=== PATIENT | female | born 1990 | race Caucasian/White ===

== ENCOUNTER 2018-03-13 10:51 | Inpatient (IN) | payer OTHER ==
[~2018-03-13] VITALS: Ht 157.5 cm; Wt 97.5 kg
[~2018-03-13 10:51] MED LIST: FLEXERIL10 MG PO
[2018-03-13] MEDS ORDERED: PRENATAL TABLE1 EAC2 PO (11:51)
[2018-03-13 12:41] LABS: ABSOLUTE BASOPHIL COUNT 0.1 /CUMM (0.0-0.2); ABSOLUTE EOSINOPHIL COUNT 0.2 /CUMM (0.0-0.7); ABSOLUTE GRANULOCYTE CT 10.3 /CUMM (1.4-6.5); ABSOLUTE LYMPH COUNT 1.8 /CUMM (1.2-3.4); ABSOLUTE MONOCYTE COUNT 0.5 /CUMM (0.10-0.60); BASOPHIL % 0.5 % (0.0-2.0); EOSINOPHIL % 1.4 % (0-5); GRANULOCYTE % 80.3 % (42.2-75.2); HEMATOCRIT 36.9 % (37-47); MEAN CORPUSCULAR HGB 30.7 PG (27.0-31.0); MEAN CORPUSCULAR HGB CONC 33.4 G/DL (33.0-37.0); MEAN CORPUSCULAR VOLUME 91.8 FL (81.0-99.0); MEAN PLATELET VOLUME 9.2 FL (7.4-10.4); PLATELET COUNT 251 /CUMM (130-400); RBC DISTRIBUTION WIDTH 14.5 % (11.5-14.5); RED BLOOD CELL CT 4.02 /CUMM (4.20-5.40); WHITE BLOOD CELL COUNT 12.8 /CUMM (4.8-10.8)
--- NOTE | 2018-03-13 13:47 | History & Physical ---
General Information and HPI MD Statement: I have seen and personally examined BREN SRIVASTAVA and documented this H&P. The patient is a 27 year old female at [40] weeks and [5] days gestation who presented with a chief complaint of [IOL]. Source of Information: patient Exam Limitations: no limitations History of Present Illness: 27yo, 40 5/7wks, here for IOL due to postdate. she has no complaints, c/o occasional ctxs, denies VB or LOF, reports GFM. care started at 29 wks, uncomplicated thus far. GBS negative Allergies/Medications Allergies: Coded Allergies: sumatriptan (ANAPHYLAXIS 03/13/18) Home Med list Vit No.130/Iron/FA ( Tablet) 27 MG IRON-800 MCG TABLET 1 TAB PO DAILY (Reported) Compliance With Home Meds: GOOD Past History carbon grinder History : 1 Para: 0 Last Menstrual Period: unknown Estimated Delivery Date: 03/08/2018 Past carbon grinder History: none Medical History Neurological: migraine EENT: NONE Cardiovascular: NONE Respiratory: NONE Gastrointestinal: GERD Hepatic: NONE Renal: NONE Musculoskeletal: NONE Psychiatric: NONE Endocrine: NONE Blood Disorders: NONE Cancer(s): NONE DIRECTOR OF SCIENTIFIC RESEARCH/Reproductive: NONE Surgical History Pertinent Surgical History: breast implants 09/2011 Past Family/Social History Psychosocial History Smoking Status: Never Smoked ETOH Use: denies use Illicit Drug Use: denies illicit drug use Review of Systems Review of Systems Constitutional: Reports: no symptoms. EENTM: Reports: no symptoms. Cardiovascular: Reports: no symptoms. Respiratory: Reports: no symptoms. GI: Reports: no symptoms. Genitourinary: Reports: no symptoms. Musculoskeletal: Reports: no symptoms. Skin: Reports: no symptoms. Neurological/Psychological: Reports: no symptoms. Hematologic/Endocrine: Reports: no symptoms. Immunologic/Allergic: Reports: no symptoms. All Other Systems: Reviewed and Negative Exam & Diagnostic Data Last 24 Hrs of Vital Signs/I&O Intake & Output 03/13 1600 03/13 0800 03/13 0000 Intake Total Output Total Balance Patient 97.522 kg Weight Obstetric Exam Wgt Gained During : 50lbs Pelvimetry: adequate Dilation (cm): 1 Effacement (%): 50 Station: -3 Membranes: intact Fluid: unknown Fundal Height (cm): 40 Multiple Gestation? No Contractions: occasional Infant #1 - FHR Baseline: 130 Category: 1 Estimated Weight: 3800g Presentation: vertex Patient for Induction? Yes Lafleur Score Lafleur Score Response Value Cervix Position: mid-position 1 Cervix Consistency: medium 1 Cervix Effacement: 30-50% 1 Cervix Dilation: 1-2 cm 1 Cervix Station: -3 0 Total 4 Physical Exam: VSS General: NAD Abdomen: gravid, soft, nontender ext: DCT (-) Labs Blood Type & Rh: O positive Antibody Screen: negative Hct/Hgb & Platelets #1: 11.9/38.5%,[id number] Hct/Hgb & Platelets #2: 12.5/39.9%,[id number] Rubella: immune VDRL #1: negative VDRL #2: negative HbsAg: negative HIV #1: negative HIV #2 negative 1 Hr P Group B Strep: negative Initial Ultrasound: IUP at 29 wks Anatomy Ultrasound: nl Genetic Testing: unknown Last 24 Hrs of Labs/Сергей: Laboratory Tests 03/13/18 1115: CBC w Diff NO MAN DIFF REQ, RBC 4.02 L, MCV 91.8, MCH 30.7, MCHC 33.4, RDW 14.5 , MPV 9.2, Gran % 80.3 H, Lymphocytes % 14.0 L, Monocytes % 3.8, Eosinophils % 1.4, Basophils % 0.5, Absolute Granulocytes 10.3 H, Absolute Lymphocytes 1.8, Absolute Monocytes 0.5, Absolute Eosinophils 0.2, Absolute Basophils 0.1, Urine Color YEL, Urine Clarity HAZY H, Urine pH 7.0, Ur Specific [place] 1.020, Urine Protein NEG, Urine Ketones NEG, Urine Nitrite NEG, Urine Bilirubin NEG, Urine Urobilinogen 0.2, Ur Leukocyte Esterase NEG, Ur Microscopic SEDIMENT EXAMINED, Urine WBC 1-3 H, Ur Epithelial Cells FEW, Urine Bacteria FEW H, Urine Hemoglobin NEG, Urine Glucose NEG Assessment/Plan Assessment/Plan: 27yo, 40 5/7wks, IOL 1. admit pt, admission labs 2. R/B/A of IOL d/w pt, also d/w pt cervical ripening with misoprostol for IOL in detail, she understand. all questions answered, informed consent obtained. 1st dose of misoprostol placed at 11: 45AM 3. will monitor closely As Ranked By This Provider Problem List: 1. 2. Post-dates Core Measures Venous Thromboembolism VTE Risk Factors / No Mechanical VTE Prophylaxis d/t LowRisk-No Interven Req'd No VTE Pharm Prophylaxis d/t LowRisk-No Interven Req'd Attending MD Review Statement Attending Statement Attending MD Statement: examined this patient, discussed with family, discussed w/nursing
--- NOTE | 2018-03-13 16:12 | PN- OBGYN ---
Surgical Brief Attending Note Brief Attending Note: pt c/o more cramping pain, reports GFM on TOCO: ctxs Q 2-4 min, FHR cat I cervix 2 cm/70%/-3 will observe for now, will consider pitocin augmentation if needed. plan of care reviewed with pt, she understand.
--- NOTE | 2018-03-13 20:19 | PN- OBGYN ---
Surgical Brief Attending Note Brief Attending Note: pt is resting in bed, c/o felt ctxs pain on TOCO: ctxs q 3-4 min, FHR cat I will defer VE, continue monitor closely.
--- NOTE | 2018-03-14 05:39 | PN- OBGYN ---
Surgical Brief Attending Note Brief Attending Note: pt request epidural for ctxs pain, pitocin at 2 mu/min on TOCO: ctxs q 3-5 min, FHR baseline 130, moderate variability, + acels, no decels cervix 2-3cm/70%/-2 anesthesia informed, will continue pitocin for IOL
--- NOTE | 2018-03-14 09:02 | PN- OBGYN ---
Surgical Brief Attending Note Brief Attending Note: pt comfortable w/ epidural afeb, v/ss fht 140s moderate variability + acc no dec toco q 2-4 sve 3/9/-2, arom, clr po 40+6wks iol for pedc, s/p miso on pit, gbs neg s/p arom, and maternal status reassuring -cont pit -ansvd
--- NOTE | 2018-03-14 12:28 | PN- OBGYN ---
Surgical Brief Attending Note Brief Attending Note: pt c/o rectal pressure. sve 5/100/0 per RN. awaiting effect of epidural bolus. fht cat 1. cont current mgmt.
--- NOTE | 2018-03-14 14:46 | PN- OBGYN ---
Surgical Brief Attending Note Brief Attending Note: pt c/o rectal pressure afeb, v/ss fht 130s moderate variability +acc no dec toco q 2 pit@6mu sve 7/90/-1 w/ caput a/p p0 40+wks pedc iol, on pit, gbs neg, and maternal status reassuring -cont current mgmt
--- NOTE | 2018-03-14 15:38 | PN- OBGYN ---
Surgical Brief Attending Note Brief Attending Note: pt c/o increasing constant rectal pressure afeb, v/ss fht 130s moderate variabilioty + acc +early dec toco q 2 pit@6mu sve 9/100/+1 -cont current mgmt
--- NOTE | 2018-03-14 17:48 | Labor & Delivery Summary ---
Delivery Summary Vaginal Delivery: Vaginal: spontaneous Episiotomy/Lacerations: Type: 2nd deg Repair: 2-0 komal Anesthesia: nesicaine and epidural Placenta: Placenta: spontanteous, normal, 3 vessel Anesthesia: block Cord PH Value: art 7.32 Apgars - 1 Min: 8 Apgars - 5 Min: 9 Additional Comments: Pt FD / +2 and pushing w/ epidural. COntrolled of live male. Head del from SANDEEP with compound left hand. No nuchal cord. Body delivered w/o difficulty. Terminal meconium noted. Mouth and nose bulb suctioned. Baby to mom's chest. Cord clamped and cut. Cord gases sent. 3vc plac del spont intact. Fundus contracted. 2nd deg lac repaired usual fashion. Good hemostasis. Pt farzana well. EBL 400cc.
[2018-03-15 09:58] LABS: ABSOLUTE BASOPHIL COUNT 0 /CUMM (0.0-0.2); ABSOLUTE EOSINOPHIL COUNT 0.1 /CUMM (0.0-0.7); BASOPHIL % 0.3 % (0.0-2.0); WHITE BLOOD CELL COUNT 14.7 /CUMM (4.8-10.8)
[2018-03-15 10:58] LABS: ABSOLUTE GRANULOCYTE CT 11.5 /CUMM (1.4-6.5); EOSINOPHIL % 0.8 % (0-5); GRANULOCYTE % 78.4 % (42.2-75.2); MEAN CORPUSCULAR HGB CONC 33.9 G/DL (33.0-37.0); MEAN CORPUSCULAR VOLUME 91.5 FL (81.0-99.0); PLATELET COUNT 201 /CUMM (130-400); RBC DISTRIBUTION WIDTH 14.5 % (11.5-14.5)
[2018-03-15 11:03] LABS: HEMATOCRIT 31.1 % (37-47)
--- NOTE | 2018-03-15 13:32 | PN- OBGYN ---
Surgical Brief Attending Note Brief Attending Note: PPD 1 Patient found sitting up in bed, baby. Denies pain. Lochia scant rubra. No cramps. No difficulty with voiding or with ambulating. Tolerating all POs. afebrile, VS normal Membranes moist, pink Neck - supple, Brests - slight engorgement, no mass or tenderness Abd - soft, NT Fundus - firm, NT, below umb. Perineum - intact, dry Extr - benign Neuro - intact grossly A: doing well mild chronic anemia h/o depression requests circumcision for her son Oniel P: con't routine care going well, latch is good - Patient discontinued her antidepressant when she learned she was . She had no mood issues during the . I spoke to her about depression and she wants to restart an SSRI now rather than take a "wait and see" approach. Counselled about meds and ; Zoloft is a good candidate for her use. She will start this when she goes home. - Requests circumcision for her son. Risks, benefits, purpose, and alternatives d/w patient and her , questions answered, and informed consent obtained.
--- NOTE | 2018-03-16 09:41 | PN- OBGYN ---
Surgical Brief Attending Note Brief Attending Note: PPD2 Ready to go home. Feels "really well". Nursing going well so far. Denies pain. +void, +BM, Ambulating, tolerating POs. afebrile, VS normal Abd - soft, NT Fundus - firm, NT Perineum - intact Extr - benign Labs, vitals, I&Os reviewed A: normal recovery s/p history of depression prior to P: discharge home,instructions reviewed encouraged to continue nursing, restart PNVs circumcision care reviewed Patient requested to start an SSRI now, Zoloft sent to her pharmacy, counseled. F/U in office in 6 weeks
[2018-03-16] MEDS ORDERED: SERTRALINE HCL50 MG PO (10:06)
== END 2018-03-16 11:09 | DRG 775 ==
LOC: GNO 10:51
PROVIDERS: Obstetrics & Gynecology
PROC: 3E0P7VZ Introduction of Hormone into Female Reproductive, Via Natural or Artificial Opening (ICD-10-PCS; 2018-03-13)
PROC: 10E0XZZ Delivery of Products of Conception, External Approach (ICD-10-PCS; principal; 2018-03-14)
PROC: 0KQM0ZZ Repair Perineum Muscle, Open Approach (ICD-10-PCS; principal; 2018-03-14)
PROC: 3E033VJ Introduction of Other Hormone into Peripheral Vein, Percutaneous Approach (ICD-10-PCS; 2018-03-14)
DX: O48.0 Post-term pregnancy (principal); O76 Abnormality in fetal heart rate and rhythm complicating labor and delivery; O32.6XX0 Maternal care for compound presentation, not applicable or unspecified; O70.1 Second degree perineal laceration during delivery; Z88.8 Allergy status to other drugs, medicaments and biological substances; Z37.0 Single live birth; Z3A.40 40 weeks gestation of pregnancy
CPT/HCPCS: GNOP; GNOS; 36415; 81001; J1200; J1885; J7120